=== PATIENT | male | born 1965 | race Caucasian/White ===

== ENCOUNTER 2021-05-28 21:02 | Emergency (ER) | payer OTHER ==
[~2021-05-28 21:02] MED LIST: LODINE CAP 300300 MG PO; NORCO 5-325 TA1 EACH PO; ZOFRAN ODT 4 MG4 MG PO
== END 2021-05-28 23:17 | disposition home or self-care (01) ==
LOC: ER1 21:02
DX: S01.81XA Laceration without foreign body of other part of head, initial encounter (principal); S51.011A Laceration without foreign body of right elbow, initial encounter; Z23 Encounter for immunization; V86.59XA Driver of other special all-terrain or other off-road motor vehicle injured in nontraffic accident, initial encounter
CPT/HCPCS: 12004; 12013; 70450; 72125; 73080; 90471; 90715; 99284